=== PATIENT | male | born 1970 | race Caucasian/White ===

== ENCOUNTER 2025-04-16 07:58 | Emergency (ER) | payer BC ==
[2025-04-16] MEDS: fentaNYL 100 MCG/2 ML SDV NASBOTH ONE ×2 (10:01→12:27)
== END 2025-04-16 16:57 | disposition home or self-care (01) ==
LOC: JP.ED 07:58
DX: S82.141A Displaced bicondylar fracture of right tibia, initial encounter for closed fracture (principal); X50.1XXA Overexertion from prolonged static or awkward postures, initial encounter
CPT/HCPCS: 73562; 73700; 96372; 99284; J1171; J3010